=== PATIENT | male | born 1995 | race African-American/Black ===

== ENCOUNTER 2019-11-22 18:41 | Emergency (ER) | payer OTHER ==
[~2019-11-22] VITALS: Ht 162.6 cm; Wt 54.4 kg
[2019-11-22 19:07] VITALS: BP 139/79
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
== END 2019-11-22 19:38 | disposition home or self-care (01) ==
LOC: ER 18:41
DX: S20.212A Contusion of left front wall of thorax, initial encounter (principal); V89.2XXA Person injured in unspecified motor-vehicle accident, traffic, initial encounter; Y93.89 Activity, other specified; Y92.413 State road as the place of occurrence of the external cause; Y99.8 Other external cause status
CPT/HCPCS: 99281